=== PATIENT | female | born 1955 | race Caucasian/White ===

== ENCOUNTER → 2018-10-29 | Outpatient (CLI) | payer BC | LOC: M.ULTRA 16:45 | DX: E07.89 Other specified disorders of thyroid (principal); E04.2 Nontoxic multinodular goiter; M79.89 Other specified soft tissue disorders; R26.2 Difficulty in walking, not elsewhere classified; R13.10 Dysphagia, unspecified; R05 Cough ==

== ENCOUNTER → 2018-11-21 | Outpatient (CLI) | payer BC ==
--- NOTE | 2018-11-25 09:06 | PATH ---
[address] [address] PATHOLOGY RPT PROCEDURE Name: IVY FALCON ANN Room: [facility].#: [id number] Admission: 11/21/18 Date of : 59 Discharge: Report #: [id number] Path Case #: [id number] Note [facility] Accession Number: [id number] TESTS RESULT FLAG UNITS REF RANGE LAB Clinician Provided Cytology Information No. of containers..01 Other (Miscellaneous) Source: THYROID ISTHMUS DIAGNOSIS: 02 THYROID ISTHMUS NEGATIVE FOR MALIGNANT CELLS. [place] CATEGORY II. SPECIMEN CONSISTS OF BENIGN FOLLICULAR CELLS, HEMOSIDERIN-LADEN MACROPHAGES, COLLOID, AND BLOOD. THIS PATTERN IS CONSISTENT WITH A BENIGN FOLLICULAR NODULE. THIS INTERPRETATION INCLUDES EVALUATION OF A CELL BLOCK. 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 SUGGEST RADIOLOGICAL AND CLINICAL CORRELATION AND FOLLOW UP CLINICALLY INDICATED. Pathologist ICD10: 02 E04.1 Signed out by: Corey Rosen MD, Pathologist NPI- [id number] Performed by: Carlos Albreto Choi, Gin Inspector ([facility]) Gross description: 01 15ML, RED, CLEAR /LCS FLAG LEGEND: L-Low Normal,H-High Normal,LL-Alert Low,HH-Alert High <-Panic Low,>-Panic High,A-Abnormal,AA-Critical Abnormal Performed at: 01 [facility] [address] [facility] [address] [place] [address] Jordin Donis MD, 02 [facility] [address] [address] Girish Hilton MD, Specimen Comment: A courtesy copy of this report has been sent to Specimen Comment: [phone]. Specimen Comment: Report sent to Specimen Comment: A duplicate report has been generated due [place] [address] PATHOLOGY RPT PROCEDURE Name: CAITIEBOWENIVY ELLIS [id number] Admission: 11/21/18 Date of : 59 Discharge: Report #: [id number] Path Case #: [id number] Performed at: 01 [facility] [place] [address] [facility] [address], [place], [place] [id number] MD Jordin Donis MD Phone: [phone]
== END | disposition home or self-care (01) ==
LOC: M.ULTRA 08:02
DX: E04.1 Nontoxic single thyroid nodule (principal)